=== PATIENT | female | born 1970 | race Caucasian/White ===

== ENCOUNTER 2021-03-01 09:24 | Emergency (ER) | payer BC, SELFPAY ==
--- NOTE | ~2021-03-01 | XR_ITS ---
EXAMINATION: XR ankle RT min 3V INDICATION: Ankle pain, initial encounter TECHNIQUE: Four views of the right ankle are obtained. COMPARISON: None available FINDINGS: There is an acute, traumatic, closed, transverse fracture of the lateral malleolus below th e level of the tibial plafond. Adjacent soft tissue swelling is present. Bone alignment is normal. No additional fracture is identified. A dorsal calcaneal enthesophyte is noted. IMPRESSION: 1. Transverse fracture of the lateral malleolus below the level of the tibial plafond. Reviewed, dictated and finalized at location A. IMPRESSION: 1. Transverse fracture of the lateral malleolus below the level of the tibial p duy.
[2021-03-01 09:41] VITALS: BP 125/80; PULSE 102; RESP 16; TEMP 36.6; O2SAT 98
--- NOTE | 2021-03-01 09:42 | ED.LOWEXIN ---
HPI - Extremity Injury (Lower) General Chief Complaint: Extremity Injury, Lower Stated Complaint: fell hurt right ankle Time Seen by Provider: 03/01/21 09:50 Source: patient Mode of arrival: ambulatory Limitations: no limitations History of Present Illness HPI Narrative: Patient comes in with moderately severe pain to left lateral ankle, after stepping into a hole in the yard last pm. Pain has been sharp, stabbing, ongoing, and made worse with weight bearing. Pain was not relieved by medications taken at home. No other associated signs or symptoms, no bruising noted. MD complaint: ankle injury Onset (ago): hour(s) Type of Injury: blunt Place: home Severity: moderate Relieving factors: nothing Exacerbating factors: weight bearing Context: walking Other symptoms: none Related Data Allergies Allergy/AdvReac Type Severity Reaction Status Date / Time Penicillins Allergy Unknown Verified 04/25/14 09:19 Review of Systems Constitutional: Constitutional: Reports no additional constitutional complaints Eyes: Eyes: Reports no additional eye complaints ENT: Reports system reviewed and no additional complaints, except as documented Cardiovascular: Cardiovascular: Reports no additional cardiovascular complaints Respiratory: Respiratory: Reports no additional respiratory complaints Gastrointestinal: Gastrointestinal: Reports no additional gastrointestinal complaints Genitourinary: Genitourinary: Reports no additional female genitourinary complaints Musculoskeletal: Musculoskeletal: Reports no additional musculoskeletal complaints Integumentary/Breasts: Skin/Breast: Reports system reviewed and no additional complaints, except as docu Neurologic: Reports system reviewed and no additional complaints, except as documented Psychiatric: Psychiatric: Reports no additional psychiatric complaints Endocrine: Endocrine: Reports no additional endocrine complaints Hematologic/Lymphatic: Hematologic/Lymphatic: Reports no additional hematologic/lymphatic complaints Allergic/Immunologic: Allergic/Immunologic: Reports no additional allergic/immunologic complaints [facility] Past Medical History Medical History No significant past medical history Surgical History Surgical History H/O right wrist surgery History of carpal tunnel surgery Family History Family History Mother Family history of Parkinson's disease Sibling Family history of diabetes mellitus in first degree relative Family history of seizure disorder Father Family history of heart disease in male family member before age 55 Grandparent Family history of heart disease in male family member before age 55 Diabetes mellitus Social History Social History (Updated 03/01/21 @ 16:13 by Vinicius Edwards MD) Smoking packs per day: 0.5 Smoking cigarettes per day: 10.0 Smoking status: Current every day smoker Alcohol intake: never Living arrangements: with family Gender identity (if verbalized by the patient): Female Sexual Orientation (if Verbalized by the Patient): Straight or Heterosexual Exam Const: General: no acute distress and alert Orientation/consciousness: patient oriented x3 HENMT: Head: normal to inspection General nose exam: Normal external nose present Mouth: Yes Normal oral and palatal mucosa present Throat: posterior oropharynx normal Eyes: Conjunctivae: conjunctivae normal Chest: Chest palpation & inspection: normal inspection of the chest Resp: Effort & Inspection: normal respiratory effort Auscultation: clear to auscultation bilaterally Cardio: Rate: regular rate Rhythm: regular rhythm GI: GI Palp: Yes Soft to palpation (nontender) Skin: General skin exam: normal color Neuro: General: patient oriented x3 and moves all extremities Extrem: Other: Mild swelling and tendernes
[2021-03-01] MEDS: KETOROLAC (*BKC) 60 MG/2 ML VIAL IM (09:55)
== END 2021-03-01 10:47 | disposition home or self-care (01) ==
PROVIDERS: Emergency Provider Emergency Medicine
DX: S82.831A Other fracture of upper and lower end of right fibula, initial encounter for closed fracture (principal)
CPT/HCPCS: 73610; 96372; 99283; 99284; J1885; L2112

== ENCOUNTER 2025-04-06 09:58 | Emergency (ER) | payer BC, SELFPAY ==
--- OUTSIDE RECORDS SUMMARY | 2017-10-03 06:00 | XMS_ITS | Continuity of Care Document ---
Author Organization [facility] Address [address] [place] [address] Phone Care Team Providers Care Pilot Steam Yacht Name Role Phone Oskar Perez MD, MD Unavailable Unavaila ble Allergies, Adverse Reactions, Alerts Substance Reaction Status Criticality Penicillins red, swelling of face(severe) Active No Information Medications Medication Instructions Dosage Effective Dates (start - stop) Status Comments multivitamin tablet - No Claudio storm Active Procedures Procedure Date Independent Medical Examination UNIQUE Prolonged serv, w/o contact, 1st hr Advance Directives Directive Yes / No Effective Date File Name No Information Encounters Encounter Description Practice Location Reason(s) For Visit Diagnoses Date Provider Providers Copied on Encounter Independent Medical Examination [facility] [employer] [facility], [address], [id number], tel:[phone] [facility] [employer] [facility] right shoulder (chief complaint) Pain in right shoulder Chris Schmitt. [address], [address], [place], [place], [id number], [place]. tel:[phone] Family History Family Member Type Diagnosis Age At Onset Problem (finding) Family history of Cardi ovascular disease Problem (finding) Family history of hyper tension Payers Payer name Insurance type Covered democrat ID Authoriza tion(s) ESIS [id number] Social History Type Description Quantity Date Captured Comments Alcohol Use Details No Caffeine Use Details Unknown Tobacco Use Status Cigarette smoker Smoking Status Current every day smoker Non-Smoking Tobacco Use Details : No Details Available : No Details Available Sex Female Vital Signs Date / Time: Height Weight BMI Pulse Rate Blood Pressure Temperature Respiratory Rate Body Surface Area Head Circumference Head Circ. Percentile Wt./Julien. Percentile BMI percentile Pulse Ox Inhaled Ox 10:23 AM 65.00 in 86.183 kg (190.00 lbs) 31.6 2 kg/m eter (2) Chief Complaint And Reason For Visit From encounter dated '10/03/2017 11:00'. right shoulder (chief complaint). Description: Soraida presents to the office for right shoulder complaints. Reason For Referral Reason For Referral No Information Plan Of Treatment Date Type Action Status Referral Ordered: X-ray exam shoulder minimum 2 views RT ordered History Of Present Illness Encounter Date Complaint History Of Prese nt Illness right shoulder Soraida presents t o the office for right shoulder complaints. Functional Status Date Functional Assessmen t No Information Instructions Date Instruction Additional Infor mation No Information Assessments Type Assessment Date assessment Pain in right shoulder 18 Patient Care Teams Name Effective Dates (start - stop) Status Members No Information
--- OUTSIDE RECORDS SUMMARY | 2018-10-23 11:52 | XMS_ITS | Continuity of Care Document ---
Author Organization [facility] Address [address] [place] [address] Phone Care Team Providers Care Bullet Lubricant Mixer Name Role Phone Stone Guzman PT Unavailable Unavailable Procedures Procedure Date Therapeutic Exercise Therapeutic Activities Manual Therapy Hot or Cold Pack Therapeutic Exercise Therapeutic Activities Manual Therapy Hot or Cold Pack Therapeutic Exercise Therapeutic Activities Manual Therapy Hot or Cold Pack Therapeutic Exercise Therapeutic Activities Manual Therapy Hot or Cold Pack PT Evaluation Low Complexity Therapeutic Exercise Manual Therapy Hot or Cold Pack Advance Directives Directive Yes / No Effective Date File Name No Information Encounters Encounter Description Practice Location Reason(s) For Visit Diagnoses Date Provider Providers Copied on Encounter [facility], [place], [place], [id number], [place] tel:[phone] [facility] No Information 9 Thomas Ritter. . [facility], [place], [place], [id number], tel:[phone] [place] Pain in right shoulderOth symptoms and signs involving the musculoskeletal systemStiffness of right shoulder, not elsewhere classifiedCivilian activity done for income or payIncomplete rotatr-cuff tear/ruptr of r shoulder, not trauma -[address], [address], [place], [address], [place]. tel:[phone] Referring Provider: Dorothy Aguirre [address], [place], [address]. tel:[phone] [facility], [address], [place], [place], [address], [place] tel:[phone] [place] Pain in right shoulderOth symptoms and signs involving the musculoskeletal systemStiffness of right shoulder, not elsewhere classifiedCivilian activity done for income or payIncomplete rotatr-cuff tear/ruptr of r shoulder, not trauma Oct-0 [address], [address], [place], [address], [place]. tel:[phone] Referring Provider: Dorothy Aguirre [address], [place], [address]. tel:[phone] [facility] [address], [place], [place], [address], [place] tel:[phone] [place] Pain in right shoulderOth symptoms and signs involving the musculoskeletal systemStiffness of right shoulder, not elsewhere classifiedCivilian activity done for income or payIncomplete rotatr-cuff tear/ruptr of r shoulder, not trauma Oct-[address] [facility] [address], [address], [place], [address], [place]. tel:[phone] Referring Provider: Dorothy Aguirre [address], [place], [address]. tel:[phone] [facility], [place], [place], [address], [place] tel:[phone] [place] Pain in right shoulderOth symptoms and signs involving the musculoskeletal systemStiffness of right shoulder, not elsewhere classifiedCivilian activity done for income or payIncomplete rotatr-cuff tear/ruptr of r shoulder, not trauma [address] [facility] [address], [address], [place], [address], [place]. tel:[phone] Referring Provider: Vinicius Pardo, [address], [place], [address]. tel:[phone] [place], [address], [place], [place], [address], [place] tel:[phone] [place] Pain in right shoulderOth symptoms and signs involving the musculoskeletal systemStiffness of right shoulder, not elsewhere classifiedCivilian activity done for income or payIncomplete rotatr-cuff tear/ruptr of r shoulder, not trauma 9 Thomas Ritter. . Referring Provider: Dorothy Aguirre [address], [place], [address]. tel:[phone] Family History Family Member Type Diagnosis Age At Onset No Information Payers Payer name Insurance type Covered constitution party ID Authoreliu bennett(s) [employer] SP [id number] Social History Type Description Quantity Date Captured Comments Sex Female Smoking Status No Information Chief Complaint And Reason For Visit No Information Reason For Referral Reason For Referral No Information History Of Present Illness Encounter Date Complaint History Of Prese nt Illness No Information Functional Status Date Functional Assessmen t No Information Instructions Date Instruction Additional Infor mation No Information Assessments Type Assessment Date No Information Patient Care Teams Name Effective Dates (start - stop) Status Members No Information
[2025-04-06 10:00] VITALS: BP 102/59; PULSE 87; RESP 18; TEMP 36.6; O2SAT 100
--- OUTSIDE RECORDS SUMMARY | 2025-04-06 10:01 | XMS_ITS | Clinical Summary ---
Author Organization [facility] Address [address] 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
--- OUTSIDE RECORDS SUMMARY | 2025-04-06 10:01 | XMS_ITS | Clinical Summary ---
Author Organization [facility] Address [address] [place] [address] Care Team Providers Care Goldbeater Name Role Phone Unknown, Notinfile Primary Care Provider Unavail able Allergies Active Allergy Reactions Criticality Noted Date Comments Penicillins Swelling Medium 08/20/2009 Swelling face, rash hives Medications pediatric multivit no.[id number] 1,000-700 unit-mcg capsule ChoiceFul Multivitamin Oral Capsule QTY: 0 capsule Days: 0 Refills: 0 Written: 09/30/17 Patient Instructions: 8 Active ibuprofen (ADVIL,MOTRIN) 100 mg tablet [facility] Ibuprofen 200 MG Oral Tablet QTY: 0 tablet Days: 0 Refills: 0 Written: 10/06/18 Patient Instructions: 9 Active multivitamin tablet Take 1 tablet by mouth daily Active acetaminophen (TYLENOL) 325 mg tablet Tylenol 325 MG Oral Tablet QTY: 0 tablet Days: 0 Refills: 0 Written: 10/06/18 Patient Instructions: 9 Active cyclobenzaprine (FLEXERIL) 10 mg tablet 3 times daily 8 Active methylPREDNISol one (MEDROL DOSEPACK) 4 mg Dosepack Use as per instructions on package. 9 Active metroNIDAZOLE (FLAGYL) 500 mg tablet Flagyl 500 MG Oral Tablet QTY: 0 tablet Days: 0 Refills: 0 Written: 10/13/18 Patient Instructions: 9 Active Active Problems No known active problems Surgical History Surgery Date Site/Laterality Comments SECTION HYSTERECTOMY SHOULDER SURGERY Medical History Medical History Date Comments Stroke (HCC) Family History Medical History Relation Name Comments Heart disease Other Relation Name Status Comments Other Social History Tobacco Use Types Packs/Day Years Used Date Smoking Tobacco: Every Day Cigarettes 0.5 37 Personal Safety Answer Date Recorded Getting School Help Needed Not on file 10/28 Comments Unknown Sex and Gender Information Value Date Recorded Sex Assigned at Not on file Legal Sex Female 1:06 PM AUTHOR AGENT Gender Identity Not on file Sexual Orientation Not on file Obstetrics History Last Filed Vital Signs Vital Sign Reading Time Taken Comments Blood Pressure 115/78 09/09/2020 3:08 PM AUTHOR AGENT Pulse 99 09/09/2020 3:08 PM AUTHOR AGENT Temperature 36.4 C (97.5 F) 09/09/2020 3:08 PM AUTHOR AGENT Respiratory Rate - - Oxygen Saturation - - Inhaled Oxygen Concentration - - Weight 81.6 kg (180 lb) 09/09/2020 3:08 PM AUTHOR AGENT Height 165.1 cm (5' 5) 09/09/2020 3:08 PM AUTHOR AGENT Body Mass Index 29.95 09/09/2020 3:08 PM AUTHOR AGENT Plan of Treatment Not on file Insurance [place] Care Teams Goldbeater Relationship Specialty Start Date End Date Unknown, Notinfile PCP - General 09/09/20
--- OUTSIDE RECORDS SUMMARY | 2025-04-06 10:01 | XMS_ITS | Encounter Summary ---
Author Organization [facility] Address [address] [place] [address] Care Team Providers Care Paramedic Supervisor Name Role Phone Unavailable Primary Care Provider Unavailabl e Encounter Details Date Type Department Care Team (Latest Contact Info) Description 02/14/2008 Outpatient Historical [facility] Alecia Jerez MD [address] 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 Gender Identity Not on file Sexual Orientation Not on file documented as of this encounter Plan of Treatment Not on file documented as of this encounter Procedures Procedure Name Priority Date/Time Associated Diagnosis Comments PATHOLOGY Routine 02/28/2008 2:45 PM CDT POC , URINE Routine 02/28/2008 9:00 AM CDT HEMOGLOBIN AND HEMATOCRIT Stat 02/28/2008 8:56 AM CDT documented in this encounter Results * PATHOLOGY (02/28/2008 2:45 PM CDT) FINAL REPORT [facility] [address] [place], [place] [address] Patient: SORAIDA PIMENTEL : 1970 Procedure Date: 02/28/2008 Accession Date: 02/28/2008 Case No: 1- [id number] Ordering Dr: ALECIA JEREZ Case types AW, BW, FW, NW and SH are performed by [facility], [place], [place] SURGICAL PATHOLOGY & NON-GYNECOLOGIC CYTOPATHOLOGY REPORT DIAGNOSIS PAROTID GLAND, RIGHT, EXCISION: - BENIGN MIXED TUMOR. Specimen Description: Right parotid. Operative Procedure: Right parotidectomy with NIM monitoring. Patient Information/Histor y/Diagnosis: Right parotid mass. Gross: Received in a single container labeled Soraida Pimentel, right parotid is a 4.7 x 3.9 x 2.5-cm unoriented excision of lobulated, yellow-pinto tissue. Sectioning exhibits a circumscribed, indurated, homogeneous white mass which abuts the blue-inked margin. The nodule is 1.8 x 1.4 cm in cross- section. The remainder of the parotid consists of yellow lobulated tissue. No additional mass is identified. The nodule is entirely submitted in cassettes A1 through A4. Additional community representative parotid is submitted in cassette A5. ANIKET/REBECCA 02.28.2008 05:15 pm Microscopic: The slides are labeled [id number], Soraida Pimentel. 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 It is composed of a mixture of ductal and myoepithelial elements. Much of the lesion has a prominent sclerotic to hyalinized stroma within which the ductal and myoepithelial cells are compressed. Chondroid extracellular matrix is present in some areas. The lesion is well-circumscribed and encapsulated. It has been entirely excised. Unremarkable intraglandular lymph nodes are included. ABBEY/REBECCA 02.29.2008 02:18 pm Staging Form: No. ELECTRONIC SIGNATURE FOR FANNIE VILLAFANA M.D.- 02/29/08 05:08 pm INTERFACE SYSTEM 02/28/2008 2:45 PM CDT us Alecia Jerez MD PATHOLOGY/CYTOLOGY ORDERABLES Fi nal Result INTERFACE SYSTEM Refer to clinic/hospital department * POC , URINE (02/28/2008 9:00 AM CDT) , URINE POC Negative Negative [facility] Urine specimen (specimen) 02/28/2008 9:00 AM CDT 02/28/2008 9:00 AM CDT us Alecia Jerez MD POINT OF CARE TESTING Final Resu lt Performing Organization Address [facility] Co de Phone Number [facility] CLIA# [id number] [address] [place] [address] * HEMOGLOBIN AND HEMATOCRIT (02/28/2008 8:56 AM CDT) HEMATOCRIT 38.0 35.5 - 44.0 % [facility] HEMOGLOBIN 12.2 11.8 - 14.8 g/dL [facility] Blood specimen (specimen) 02/28/2008 8:56 AM CDT 02/28/2008 9:16 AM CDT Narrative [facility] - 02/28/2008 9:25 AM CDT RM 36 us Alecia Jerez MD HEMATOLOGY ORDERABLES Final Resu lt Performing Organization Address [facility] Co de Phone Number [facility] CLIA# [id number] [address] [place] [address] documented in this encounter Visit Diagnoses Diagnosis Swelling, mass, or lump in head and neck documented in this encounter
--- NOTE | 2025-04-06 10:03 | ED_ITS ---
HPI - Ear Problem General Chief complaint: Ear Stated complaint: ear hurts Time Seen by Provider: 04/06/25 10:13 Source: patient and RN notes reviewed Mode of arrival: ambulatory Limitations: no limitations History of Present Illness HPI Narrative: 54-year-old female presents concern for left ear pain. Reports symptoms for 3 days. She reports it hurts to lay on. She denies any runny nose, stuffy nose, sore throat. Denies drainage from ear. Denies hearing changes. Denies fever. MD Complaint: ear pain Related Data Home Medications ?Medication ?Instructions ?Recorded ?Confirmed ?Last Taken ?Type aspirin 81 mg tablet,delayed mg 04/06/25 Unknown Hist ory release atorvastatin 40 mg tablet mg 04/06/25 Unknown History bupropion HCl 150 mg 24 hr tablet, mg PO 04/06/25 Unk nown History extended release ibuprofen 600 mg tablet mg 04/06/25 Unknown History semaglutide 14 mg tablet (Rybelsus) mg PO 04/06/25 Un known History Allergies Allergy/AdvReac Type Severity Reaction Status Date / Time [place] And Derivatives Allergy Unknown Unknown Verified 04/06/25 10:11 Penicillins Allergy Unknown Unknown Verified 04/06/25 10:11 Review of Systems Review of Systems: CONSTITUTIONAL: Denies malaise, chills, sweats, or fever. EYES: Denies visual changes, redness, or discharge. ENT: Denies rhinorrhea, congestion, sinus pain, and sore throat. Reports left ear pain CARDIOVASCULAR: Denies chest pain, palpitations, or edema. RESPIRATORY: Denies cough. Denies dyspnea. GASTROINTESTINAL: Denies abdominal pain, nausea, vomiting, diarrhea SKIN: Denies rash or itching. MUSCULOSKELETAL: Denies myalgia. NEUROLOGIC: Denies headache. All systems reviewed & are unremarkable except as noted in HPI and below PMFSH Past Medical History Medical History No significant past medical history Surgical History Surgical History H/O right wrist surgery History of carpal tunnel surgery Family History Family History Mother Family history of Parkinson's disease Sibling Family history of diabetes mellitus in first degree relative Family history of seizure disorder Father Family history of heart disease in male family member before age 55 Grandparent Family history of heart disease in male family member before age 55 Diabetes mellitus Social History Social History (Updated 03/01/21 @ 16:13 by Vinicius Edwards MD) Smoking packs per day: 0.5 Smoking cigarettes per day: 10.0 Smoking status: Current every day smoker Alcohol intake: never Living arrangements: with family Gender identity (if verbalized by the patient): Female Sexual Orientation (if Verbalized by the Patient): Straight or Heterosexual Comments At time of signature, agree with nursing past medical, surgical, social and family history. There is no relevant family history pertinent to the presenting complaint Exam Narrative: GENERAL: Well-appearing, well-nourished, and in no acute distress. HEAD: Normocephalic EYES: PERRLA, conjunctivae clear ENT: Nares clear. Mucous membranes moist. TM pearly sun with dull light reflex bilaterally; left tragal tenderness, EAC mildly erythematous and edematous without drainage. No post or pre-auricular erythema, induration, or warmth noted. Oropharynx not erythematous without lesions. Tonsils not enlarged and without exudate, no drooling, no hoarseness, no trismus, uvula midline. NECK: Supple. No lymphadenopathy CHEST: Clear to auscultation, breath sounds equal. No wheezing, rhonchi, rales, or stridor. No respiratory distress, speaks in full sentences. HEART: Regular rate and rhythm. No murmur heard. SKIN: Warm, dry, no rash. NEURO: Alert and oriented x3. PSYCH: Normal mood and affect Course Course Emergency Course: Patient is aware of diagnosis, understands and agrees to treatment plan. Anticipatory guidance given. Patient agrees to follow-up as directed and is aware of reasons to seek care at the emergency department. Portions of this record may have been created with voice recognition software Level of Care: Express Care Visit Vital Signs Vital signs: Reviewed. Medical Decision Making MDM Narrative Medical decision making narrative: I evaluated this in the [facility] care. History is obtained from patient who is an independent historian and physical exam was performed.? Available medical records were reviewed. ? Exam findings and relevant testing show no acute concerns or changes; patient is non-toxic appearing and is in no distress. Differential diagnosis considered: Carl virus, strep pharyngitis, allergic rhinitis, upper respiratory tract infection, sinusitis, rhinosinusitis, nasopharyngitis. viral pharyngitis, otitis media, otitis externa, otitis effusion, pre/post auricular cellulitis, mastoiditis, cerumen impaction, foreign body. Exam findings show no acute concerns or changes; patient is non-toxic appearing and is in no distress. Patient is appropriate for outpatient treatment and follow-up. ? Differential diagnosis and treatment plan were discussed with the patient. Patient agrees with discussion and after shared medical decision making agrees with plan of care. All questions were answered to the patient's satisfaction. Patient is appropriate for outpatient treatment and follow-up. Critical Care Time Critical Care Time Critical Care Time: No Discharge Plan Discharge Clinical Impression: Otitis externa Patient Disposition: Home Condition: Stable Instructions: How to Use Ear Drops (ED) Additional Instructions: 1) Please follow-up with your primary care doctor as needed. 2) If you have any worsening of symptoms or any other urgent concerns please go to the ER. 3) Please take medications as prescribed and use Tylenol or ibuprofen as needed for pain. 4) Please read and follow information included in discharge instructions. Patient Language: Bel[place]ian Prescriptions: New [id number]-[id number]-PM 3.5-10,000-1 mg/mL-unit/mL-% drops,suspension 4 drop LEFT EAR Q8H 7 Days Qty: 10 0RF No Action atorvastatin 40 mg tablet aspirin 81 mg tablet,delayed release (DR/EC) ibuprofen 600 mg tablet bupropion HCl 150 mg tablet extended release 24 hr PO Rybelsus 14 mg tablet PO Follow-up/Referrals: Molly Negron [Other] Time of Disposition: 10:17
== END 2025-04-06 10:20 | disposition home or self-care (01) ==
PROVIDERS: Emergency Provider Nurse Practitioner
DX: H60.92 Unspecified otitis externa, left ear (principal); F17.210 Nicotine dependence, cigarettes, uncomplicated; Z79.82 Long term (current) use of aspirin
CPT/HCPCS: 99213; G0463